=== PATIENT | male | born 1965 | race Caucasian/White ===

== ENCOUNTER 2018-03-13 19:03 | Emergency (ER) | payer SELFPAY ==
[2018-03-13 19:14] VITALS: BP 146/81; PULSE 87; RESP 20; TEMP 98; O2SAT 97
[2018-03-13] MEDS ORDERED: Bacitracin 500 Units/gm Oint Foilpak UD ONE (20:06)
[2018-03-13] MEDS ORDERED: Lidocaine Hydrochloride 5 ML INJ ONE (20:06)
--- NOTE | 2018-03-13 20:21 | C.PDOC ---
History Of Present Illness 53 year old male presents to the ED for evaluation of a laceration to his right 3rd finger. Patient reports that today while shopping at a store he was accidentally cut by a weigh box tender. Patient states his tetanus is UTD. Patient denies fever, chills, rash, weakness, numbness, other injury, fall, trauma. Time Seen by Provider: 03/13/18 19:48 Chief Complaint (Nursing): Abnormal Skin Integrity History Per: Patient History/Exam Limitations: no limitations Onset/Duration Of Symptoms: Hrs Current Symptoms Are (Timing): Still Present Location Of Injury: Right: Head Quality Of Symptoms: Painful Recent travel outside of the [place]: No Additional History Per: Patient Past Medical History Reviewed: Historical Data, Nursing Documentation, Vital Signs Vital Signs: Last Vital Signs Temp 98 F 03/13/18 19:12 Pulse 87 03/13/18 19:12 Resp 20 03/13/18 19:12 BP 146/81 03/13/18 19:12 Pulse Ox 97 03/13/18 19:12 - Medical History PMH: No Chronic Diseases Surgical History: No Surg Hx Family History: States: Unknown Family Hx - Social History Hx Alcohol Use: No Hx Substance Use: No - Immunization History Hx Tetanus Toxoid Vaccination: No Hx Influenza Vaccination: No Hx Pneumococcal Vaccination: No Review Of Systems Constitutional: Negative for: Fever, Chills Gastrointestinal: Negative for: Nausea, Vomiting Musculoskeletal: Positive for: Hand Pain Skin: Positive for: Other (laceration) Neurological: Negative for: Weakness, Numbness, Headache, Dizziness Physical Exam - Physical Exam Appears: Non-toxic, No Acute Distress Skin: Normal Color, Warm, Dry Head: Atraumatic, Normacephalic Eye(s): bilateral: Normal Inspection Neck: Normal ROM, Supple Extremity: Normal ROM, No Tenderness, Capillary Refill (< 2 seconds), No Swelling, Other (3 cm laceration dorsal aspect right 3rd finger. No tendon involvement, no FB seen) Pulses: Left Radial: Normal, Right Radial: Normal Neurological/Psych: Oriented x3, Normal Speech, Normal Cognition, Normal Motor, Normal Sensation Gait: Steady ED Course And Treatment O2 Sat by Pulse Oximetry: 97 (On RA) Pulse Ox Interpretation: Normal Progress Note: Patient was educated on proper wound care and advised to follow up with PMD in 2 days or to return to the ED for wound check. Laceration - Laceration Repair right 3rd finger Wound Length (In cm): 3 Description Of Wound: Linear Wound Cleansed With: Sterile Saline Anesthesia: Lidocaine 1% Wound Examination: Irrigated With Saline, No FB With Wound Exploration, No Tendon Injury With Wound Exploration Wound Closure: Suture (x3) Suture Technique And Material Used: Nylon (4-o) Wound Complexity: Simple (well tolerated) Disposition Counseled Patient/Family Regarding: Diagnosis, Need For Followup - Disposition Referrals: All Li MD [Staff Provider] - Disposition: HOME/ ROUTINE Disposition Time: 20:19 Condition: STABLE Additional Instructions: Please follow up with PMD in 2 days for wound check May follow up with Hand doctor Follw wound care instructions Suture removal in 8-10 days return to ER if severe pain, numbness, swelling, redness or worse Instructions: Laceration Repair With Stitches (DC) Forms: [employer] (Ivorian) - Clinical Impression Clinical Impression: Laceration of finger of right hand - PA / PHARMACY ASSISTANT / Resident Statement MD/DO has reviewed & agrees with the documentation as recorded. - Scribe Statement The provider has reviewed the documentation as recorded by the Scribe Joel Ruiz All medical record entries made by the Ewaibguadalupe were at my direction and personally dictated by me. I have reviewed the chart and agree that the record accurately reflects my personal performance of the history, physical exam, medical decision making, and the department course for this patient. I have also personally directed, reviewed, and agree with the discharge instructions and disposition.
== END 2018-03-13 20:40 | disposition home or self-care (01) ==
LOC: C.ER 19:03
DX: S61.212A Laceration without foreign body of right middle finger without damage to nail, initial encounter (principal); W45.8XXA Other foreign body or object entering through skin, initial encounter; Y92.89 Other specified places as the place of occurrence of the external cause